=== PATIENT | female | born 1970 | race Caucasian/White ===

== ENCOUNTER 2022-07-12 15:35 | Emergency (ER) | payer MEDICARE, SELFPAY ==
[2022-07-12 15:46] VITALS: BP 150/98; PULSE 88; RESP 18; TEMP 36.2; O2SAT 95; BMI 30.9
--- NOTE | 2022-07-12 16:00 | ED_ITS ---
HPI - General Adult General Time Seen by Provider: 16:01 Date Seen: 07/12/22 Chief complaint: Back Injury/Pain Stated complaint: Lower back pain Time Seen by Provider: 07/12/22 16:00 Source: patient and RN notes reviewed Mode of arrival: ambulatory Limitations: no limitations History of Present Illness HPI narrative: Patient is a 52-year-old female coming in with right low back pain with onset today. She denies any trauma. She has no history of pain like this before. No other joints are bothering her. No fevers or chills, no night sweats. She is a smoker. Pain is not going down into either leg, not down into the buttocks. Walking does increase this. Rest helps, heat helps. She tried Aleve once, did not really change things. Again, symptoms just started today. Treatments prior to arrival: NSAID Related Data Previous Rx's Medication Instructions Recorded cyclobenzaprine 10 mg tablet 10 mg PO HS PRN muscle spasm #10 07/12/22 tabs Allergies Allergy/AdvReac Type Severity Reaction Status Date / Time No Known Drug Allergies Allergy Verified 07/12/22 15:48 Review of Systems Status of ROS: Reports: 6 or more systems reviewed and unremarkable except as noted in History and below PFSH PFSH Social History Smoking Status: Current every day smoker What tobacco products do you use: cigarettes Do you use any of these nicotine containing products: None Second hand tobacco smoke exposure: No How often do you have a drink containing alcohol: never AUDIT-C Alcohol total score: 0 Non-prescribed substance use: denies use Exam Const: Vital Signs, click to edit/add: Vital Signs - 24 hr 07/12/22 15:46 07/12/22 16:46 Temperature 97.1 F L Pulse Rate [Bilate ral Pulse Oximeter ] 88 72 Respiratory Rate 18 16 Blood Pressure [Ri ght Forearm] 150/98 H 142/88 H Pulse Oximetry 95 95 Oxygen Delivery Me thod Room Air Room Air Documenting provider has reviewed patient's vital signs: yes Common normals: no apparent distress, oriented x3, no limitations, alert and well nourished General appearance: cooperative, comfortable, well kempt and well developed Nutritional appearance: obese HENMT: Common normals: normocephalic and head/scalp atraumatic Head and scalp: normocephalic and atraumatic Eye: Common normals: PERRL, EOMs intact bilaterally, conjunctivae normal and no scleral icterus Conjunctiva: conjunctiva(e) normal Pupil: PERRL Neck & C-Spine: Common normals: full ROM, no lymphadenopathy, supple and no meningeal signs Resp: Common normals: normal respiratory effort, no retractions, no use of accessory muscles and clear to auscultation bilaterally Auscultation: clear to auscultation bilaterally Cardio: Common normals: regular rate, regular rhythm, S1 normal heart sound, S2 normal heart sound, no gallops, no clicks and no murmurs Rate: regular rate Rhythm: regular rhythm Heart sounds: S1 normal and S2 normal GI: Common normals: Normal to inspection, nondistended, normoactive bowel sounds present, soft to palpation and non-tender Palpation: soft Back & Pelvis: Common normals: thoracic and lumbar spine normal to inspection and no thoracic nor lumbar tenderness Other: Points to and has reported reproducible pain over the superior aspect of the right SI joint. There is no visible or palpable changes other than the pain. Can straight leg raise without any difficulty. Normal symmetrical strength of her lower extremities, normal sensation of her lower extremities. Gait is normal. No lower extremity edema. Certainly no midline tenderness of the lumbar spine. Really is pointing to the superior aspect of the right SI joint and when I palpate over this area that is where she states the pain is located. Neuro: Common normals: oriented x3 Sensorium/orientation: alert Meningeal signs: no meningeal signs Psych: Appearance: well kempt Course Course Hospital Course: We can x-ray her SI joints to see if there is any possible arthritis. This is nontraumatic. Have reviewed with her that given that it just started today, she really has not had adequate time for trial of conservative management. Once I have seen the x-rays and they been read by Radiology, will follow back up with her. At this time, do not see anything that would suggest that we need laboratory evaluation or any advanced imaging. Reevaluation(s) Reevaluation #1: Reviewed with patient that the x-ray is not showing any acute pathology. Sounds as if she is comfortable continuing with ongoing [id number] medicines. Given that this is only been present 1 day, do not feel that going to measures of prednisone are necessary. I think she needs to give this a few days to see if conservative management will be beneficial. Obviously if things are worsening, she understands I would recommend follow-up. I will outlined regimen of Tylenol and ibuprofen in her discharge. Did offer a bit of a muscle relaxant at bedtime, she would like to try this. I am not sure if it will help per but at least the sedating affects may give her some benefits with sleeping. Will have her continue with heat as it did seem to help her. Time: 18:03 Vital Signs Vital signs: Initial Vital Signs Temperature 97.1 F L 07/12/22 15:46 Temperature Source Temporal Artery Scan 07/12/22 15:46 Pulse Rate 88 07/12/22 15:46 Respiratory Rate 18 07/12/22 15:46 Blood Pressure 150/98 H 07/12/22 15:46 Blood Pressure Mean 115 07/12/22 15:46 Blood Pressure Position Sitting 07/12/22 15:46 Pulse Oximetry 95 07/12/22 15:46 Oxygen Delivery Method 07/12/22 15:46 Vital Signs Temperature 97.1 F L 07/12/22 15:46 Pulse Rate 88 07/12/22 15:46 Respiratory Rate 18 07/12/22 15:46 Blood Pressure 150/98 H 07/12/22 15:46 Pulse Oximetry 95 07/12/22 15:46 Oxygen Delivery Method 07/12/22 15:46 Temperature 97.1 F L 07/12/22 15:46 Pulse Rate 72 07/12/22 16:46 Respiratory Rate 16 07/12/22 16:46 Blood Pressure 142/88 H 07/12/22 16:46 Pulse Oximetry 95 07/12/22 16:46 Oxygen Delivery Method 07/12/22 16:46 Medical Decision Making Imaging Data SI joints x-ray: Attestation: I have reviewed the pertinent imaging results. My impression: I see no acute pathology on my preliminary review. Radiologist's impression: Patient: JUDE DAVIS Facility:?[facility] Patient ID:?[id number] Site Patient ID:?[id number]. Site :?1970 Study:?XRay Pelvis Bilateral SI Joints-07/12/2022 4:39:55 PM Ordering Physician:Sheila Young Final Report: Indication: Right sacroiliac joint pain Technique: Three views Comparison: Sacral series 02/24/2018 Findings: Bones: Alignment is normal. No fractures or bone lesions. Joint spaces: Unremarkable. Soft tissues: Surgical clip overlies the pelvis. Dictated by Iain Caban MD @ 07/12/2022 5:38:33 PM (Electronic Signature) Critical Care Time Critical Care Time Critical Care Time: No Discharge Plan Discharge Clinical Impression: Pain of right sacroiliac joint Patient Disposition: Home, Self-Care Condition: Stable Instructions: Back Pain (ED) Additional Instructions: Tylenol 1000 mg 3 times a day baseline for pain. Can add in ibuprofen 400 mg 3 to 4 times a day as needed for extra pain control, take with food. Can use the muscle relaxant Flexeril at bedtime to help with sleep. If you are not improving with these measures over the next 3-5 days, recommend follow up in clinic. If pain is becoming severe, have a fever with it or other concerning symptoms, return to the ER for further evaluation. Activity Level: Activity as Tolerated Prescriptions: New cyclobenzaprine 10 mg tablet 10 mg PO HS PRN (Reason: muscle spasm) Qty: 10 0RF Follow Up/Referrals: Provider,Not a Local [Referring] - Stand Alone Forms: [employer] Info Instructions
--- NOTE | 2022-07-12 16:10 | CRLHL7_ITS ---
For Patients: As a result of the Century Cures Act, medical imaging exams and procedure reports are released immediately into your electronic medical record. You may view this report before your referring provider. If you have questions, please contact your health care provider. Indication: Right sacroiliac joint pain Technique: Three views Comparison: Sacral series 02/24/2018 Findings: Bones: Alignment is normal. No fractures or bone lesions. Joint spaces: Unremarkable. Soft tissues: Surgical clip overlies the pelvis. Dictated by Iain Caban MD @ 07/12/2022 5:38:33 PM (Electronically Signed)
[2022-07-12 16:46] VITALS: BP 142/88; PULSE 72; RESP 16; O2SAT 95
[2022-07-12] MEDS: CYCLOBENZAPRINE HCL 10 MG TABLET PO (18:17)
== END 2022-07-12 18:19 | disposition home or self-care (01) ==
PROVIDERS: Emergency Provider Family Medicine; PCP Family Medicine
DX: M46.1 Sacroiliitis, not elsewhere classified (principal)
CPT/HCPCS: 72202; 99283; 99284; A9270

== ENCOUNTER 2022-09-05 06:06 | Day surgery (SDC) | payer MEDICARE, SELFPAY ==
[2022-09-05 06:41] VITALS: BMI 34.4
[2022-09-05 06:45] VITALS: BP 157/109; PULSE 85; RESP 16; TEMP 36.7; O2SAT 97
[2022-09-05] MEDS: BUPIVACAINE 0.5% 30 ML INJECTION (07:00)
[2022-09-05] MEDS: ETHYL CHLORIDE 1 APPLICATION 1 APPLIC TOPICAL (07:13)
--- NOTE | 2022-09-05 07:13 | SUR.PREOP ---
SAME DAY SURGERY LOCAL INJECTION SITE VERIFICATION WAS PERFORMED BY SURGEON/PA AND PATIENT PRIOR TO LOCAL ANESTHETIC BEING INJECTED TO OPERATIVE SITE.
[2022-09-05 07:19] VITALS: BP 141/92; PULSE 82; O2SAT 95
[2022-09-05 07:25] VITALS: BP 147/88; PULSE 83; RESP 16; O2SAT 96
[2022-09-05 07:30] VITALS: BP 140/78; PULSE 78; RESP 16; O2SAT 95
[2022-09-05] MEDS: NEOMYCIN/BACITRACIN/POLYMYXIN B 1 APPLIC TOPICAL (07:33)
[2022-09-05 07:35] VITALS: BP 143/82; PULSE 76; RESP 14; O2SAT 94
--- NOTE | 2022-09-05 07:38 | PM.ORPRC ---
Procedure Note Date of procedure: 09/05/22 Procedure: PREOPERATIVE DIAGNOSIS: 1. Right carpal tunnel syndrome POSTOPERATIVE DIAGNOSIS: 1. Right carpal tunnel syndrome PROCEDURE: 1. Right open carpal tunnel release SURGEON: Bucky Cordova MD. TALENT DEVELOPMENT SPECIALIST: ORQUIDEA Driscoll ANESTHESIA: Local anesthetic (50:50 mixture of 1% lidocaine with epi and 0.5% marcaine plain) - 10ml total IMPLANTS: None EBL: 2 mL TOURNIQUET: None COMPLICATIONS: None evident INDICATIONS: The patient is a pleasant 52-year-old female male who has experienced right hand numbess/tingling affecting the radial 3.5 digits for multiple months. It has progressively gotten worse. Nonoperative management has been tried and failed, and therefore surgery was recommended. DESCRIPTION OF PROCEDURE: Following a thorough discussion of risks, benefits, and alternatives consent was obtained and the operative extremity was marked. The patient was brought to the operating room and placed supine on the operating table. Local anesthesia induction was undertaken in preop holding. No antibiotics were administered as this was planned to be a local case only. Proper time-out was performed identifying proper patient, site, and procedure. The operative extremity was prepped and draped in the appropriate sterile fashion using ChloraPrep. An incision was made in line with the radial border of the ring finger beginning 1 cm distal to the distal wrist crease and progressing for another 2.5cm distal. Caution was taken to stay proximal to Patricia's cardinal line. Sharp incision through the skin, subcutaneous tissue, and palmar fascia was performed. The thenar musculature was bluntly elevated off the transverse carpal ligament. The ligament was directly visualized, and divided sharply with a 15 blade. This was released from its most proximal to the most distal extent. Metzenbaum scissor was also utilized to release the fascia extension proximally. We confirmed complete release of the transverse carpal ligament. Closure was performed with 4-O nylon in interrupted fashion. Soft dressings were applied, and the patient was transferred to the recovery room in stable condition. PLAN: 1. Encourage elevation of the operative extremity. 2. Range of motion of the fingers and hand/wrist as tolerated. 3. Ibuprofen/acetaminophen and/or Percocet as needed for pain control. 4. Follow up with PA visit or nurse visit in 12-16 days for wound check and suture removal.
== END 2022-09-05 07:54 | disposition home or self-care (01) ==
PROVIDERS: PCP Family Medicine; Visit Provider Orthopaedic Surgery Sports Medicine
PROC: (CPT 64721; principal; 2022-09-05 07:30)
DX: G56.01 Carpal tunnel syndrome, right upper limb (principal)
CPT/HCPCS: 64721; J3490

== ENCOUNTER 2022-12-05 06:29 | Outpatient (CLI) | payer MEDICARE, SELFPAY ==
--- NOTE | 2022-12-05 07:15 | MR_ITS ---
[address] [address] Phone:?[phone] Fax:?[phone] Referring Physician Information: Bucky Cordova M.D. [id number] [facility] [address] Phone:?[phone] Fax:?[phone] Patient:Kia Mcadams D.O.B:?1970 Sex:?Female Phone:?[phone] [facility] MRN:?[id number] Exam Date:?12/05/2022 EXAM: MRI of the RIGHT KNEE, without contrast CLINICAL: Right knee effusion. COMPARISONS: X-rays dated 11/26/2022. TECHNICAL: MR sequences of the right knee: sagittals: PD, PDFS coronals: PD, T2FS axials: PD, PDFS SEDATION: None. CONTRAST: None. FINDINGS: Ligaments: ACL: Intact and unremarkable. PCL: Intact and unremarkable. MCL: Intact and unremarkable. LCL: Intact and unremarkable. Posterolateral corner: Popliteus tendon, distal biceps femoris tendon, iliotibial band, and the popliteofibular ligament appear intact. Posteromedial corner: Semimembranosus, pes anserine tendons and posterior oblique ligament appear intact. Extensor mechanism: Patellar tendon: Intact, without tendinopathy. Quadriceps tendon: Intact, without tendinopathy. Retinacula: Medial and lateral retinacula are intact. Fat pads: Unremarkable infrapatellar Hoffa's, quadriceps and prefemoral fat pads. Patellofemoral joint: Patella: Grade 3-4 chondral loss involves the patellar median ridge extending into the medial patellar facet with underlying subchondral reactive marrow edema and small cystic change. Deep chondral delamination is also seen to involve the patellar median ridge extending into the junction with the lateral patellar facet on axial series 4 image 8. Mild chondral thinning and surface irregularity/fissuring involving the remainder of the lateral patellar facet cartilage. Trochlea: No significant chondromalacia. Medial compartment: Medial meniscus: Mild degenerative fraying involving the free edge of the posterior horn on sagittal series 6 image 21, only seen on a single image and therefore not completely meeting MRI criteria for tearing. Medial meniscus otherwise appears intact. Medial cartilage: High-grade and full-thickness chondral loss involves the weightbearing medial femoral condyle. Grade 2-3 chondral thinning involves the medial tibial plateau. Lateral compartment: Lateral meniscus: Mild ill-defined degenerative fraying/tearing involving the free edge and undersurface of the posterior horn on sagittal series 6 image 12 image 13, with ill-defined degenerative fraying/tearing involving the posterior root on sagittal series 6 image 14-15. No meniscal displacement. Lateral cartilage: Grade 3 chondral loss involves the central lateral tibial plateau on coronal series 8 images 18-19 and sagittal series 6 image 12. Mild chondral thinning involving the peripheral lateral femoral condyle. Knee joint: Effusion: Large partially visualized right knee effusion. Intra-articular bodies:?No convincing bodies identified. Popliteal cyst: None. Bones: No suspicious bone marrow signal alteration or fracture line. Anterior knee subcutaneous soft tissue edema is nonspecific, with mild posterior knee subcutaneous soft tissue edema also noted. IMPRESSION: 1. Ill-defined degenerative fraying/tearing involving the posterior horn and posterior root lateral meniscus. Mild degenerative fraying also involves the free edge of the posterior horn medial meniscus. 2. Tricompartmental chondral loss as above. 3. Large partially visualized joint effusion. 4. No evidence of ligamentous injury or fracture. [facility] Electronically signed on 12/05/2022 12:15:00 PM by Alli Sanders D.O.
== END 2022-12-05 06:30 | disposition home or self-care (01) ==
LOC: MRI 06:30
PROVIDERS: PCP Family Medicine; Visit Provider Orthopaedic Surgery Sports Medicine
DX: M25.561 Pain in right knee (principal); S83.281A Other tear of lateral meniscus, current injury, right knee, initial encounter; M25.461 Effusion, right knee
CPT/HCPCS: 73721

== ENCOUNTER 2024-09-14 06:10 | Day surgery (SDC) | payer MEDICARE, SELFPAY ==
[2024-09-14 06:10] VITALS: BP 176/91; PULSE 81; RESP 18; O2SAT 96; BMI 37.9
[2024-09-14] MEDS: BUPIVACAINE 0.5% 30 ML INJECTION (07:00)
[2024-09-14] MEDS: LIDOCAINE 1%-EPI 1:100,000 20 ML INFILTRATI (07:00)
--- NOTE | 2024-09-14 07:01 | SUR.PREOP ---
SAME DAY SURGERY LOCAL INJECTION SITE VERIFICATION WAS PERFORMED BY SURGEON/PA AND PATIENT PRIOR TO LOCAL ANESTHETIC BEING INJECTED TO OPERATIVE SITE.
[2024-09-14] MEDS: ETHYL CHLORIDE 1 APPLICATION 1 APPLIC TOPICAL (07:04)
[2024-09-14 07:15] VITALS: BP 180/95; PULSE 69; RESP 20; O2SAT 94
[2024-09-14 07:20] VITALS: BP 181/93; PULSE 74; RESP 18; O2SAT 94
[2024-09-14 07:25] VITALS: BP 170/100; PULSE 69; RESP 20; O2SAT 96
--- NOTE | 2024-09-14 07:32 | PM.ORPRC ---
Procedure Note Date of procedure: 09/14/24 Procedure: PREOPERATIVE DIAGNOSIS: 1. Left thumb flexor tenosynovitis - trigger thumb POSTOPERATIVE DIAGNOSIS: 1. Left thumb flexor tenosynovitis - trigger thumb PROCEDURE: 1. Left thumb flexor tendon sheath open release (A1 stacia) SURGEON: Bucky Cordova MD. CHIEF OF PARTY: Cara Moreira PA-C ANESTHESIA: Local anesthetic 4 mL via 50:50 mixture of 1% Lidocaine with epi and 0.5% marcaine plain EBL: 2ml IMPLANTS: None TOURNIQUET: None COMPLICATIONS: None evident INDICATIONS: The patient is a pleasant 54-year-old female who has experienced left thumb catching/triggering for number of months. It has progressively gotten worse. Given the failure of nonoperative management, and how this affects daily life, surgery was recommended. DESCRIPTION OF PROCEDURE: Following a thorough discussion of risks, benefits, and alternatives consent was obtained and the operative digit(s) was marked. The patient was brought to the operating room and placed supine on the operating table. Local anesthesia induction was undertaken in preop holding. No antibiotics were administered as this was planned to be a local case only. Proper time-out was performed identifying proper patient, site, and procedure. The operative extremity was prepped and draped in the appropriate sterile fashion using ChloraPrep. An incision was made on the palmar surface of the hand overlying the MCP joint region of the appropriate digit(s) respecting the palmar creases being cautious not to cross these perpendicularly. Sharp incision through the skin, and blunt dissection through subcutaneous tissue allowing protection of crossing neurologic structures. The A1 stacia was visualized directly. It was incised sharply with a 15 blade. It was released completely from its distal to proximal extent under direct visualization. The tendon was inspected and found to be mildly striated consistent with some friction. Otherwise, it was intact. The tendon was removed out of the wound, and further inspected. The patient was asked to manually flex and extend the digits and showed no further catching. The catching which was visualized after tourniquet inflation, was no longer evident with reproduction of a manual fist and relaxation. Closure was performed with 4-O nylon in interrupted fashion. Soft dressings were applied, and the patient was transferred to the recovery room in stable condition. PLAN: 1. Encourage elevation of the operative extremity. 2. Range of motion and icing of the fingers and hand/wrist as tolerated/needed. 3. Ibuprofen/acetaminophen as needed for pain control. 4. Follow up with PA visit in 12-16 days for wound check and suture removal.
[2024-09-14 07:40] VITALS: BP 171/116; PULSE 69; RESP 18; TEMP 36.9; O2SAT 95
== END 2024-09-14 07:44 | disposition home or self-care (01) ==
PROVIDERS: PCP Family Medicine; Visit Provider Orthopaedic Surgery Sports Medicine
PROC: (CPT 26055; principal; 2024-09-14 07:15)
DX: M65.312 Trigger thumb, left thumb (principal); M65.842 Other synovitis and tenosynovitis, left hand
CPT/HCPCS: 26055; J0665

== ENCOUNTER 2024-11-30 00:26 | Emergency (ER) | payer MEDICARE, SELFPAY ==
--- OUTSIDE RECORDS SUMMARY | 2024-11-30 00:29 | XMS_ITS | Clinical Summary ---
Author Organization [facility] Address [address] [place] [id number] Care Team Providers Care Motor Equipment Sergeant Name Role Phone Pcp, No Primary Care Provider Unavailabl e Medications PRILOSEC 20 MG CAP take 1 capsule (20 mg) by oral route once daily before a meal 30 ok thru 11 7 Active Immunizations Immunization Administration Dates Next Due Influenza, IIV3 (Age >=3 years) 05/03/2007 Social History Tobacco Use Types Packs/Day Years Used Date Smoking Tobacco: Never Assessed Comments Unknown Sex and Gender Information Value Date Recorded Sex Assigned at Not on file Legal Sex Female 5:19 AM [employer] Gender Identity Not on file Sexual Orientation Not on file Plan of Treatment Health Maintenance Due Date Last Done Comments Tdap 1979 Depression screening for age 12+ 1980 HIV for age 15-65 1983 BMI (ht and wt on same day) for age 18+ 1986 Hepatitis C screening for age 18-79 1986 Hepatitis B series for 19+ ( 1 of 3 - 19+ 3-dose series) 1987 Tetanus booster 1988 Pap test for age 21-65 03/21/2008 03/21/2005 Colonoscopy through age 75 2013 Lipids for age 45-75 2013 Mammogram for age 45-75 2013 Pneumococcal series for age 50+ (1 of 1 - PCV) 018 Zoster (shingles) series for age 50+ (1 of 2) 03/12/20 18 COVID-19 vaccine series ( - 2023-25 season) 4 Influenza Vaccine (Season Ended) 2025 05/03/20 07 Procedures Procedure Name Priority Date/Time Associated Diagnosis Comments GYNECOLOGICAL PANEL Timed 03/21/2005 1 2:00 PM CDT from Last 3 Months or Most Recently Relevant to Health Maintenance Results * GYNECOLOGICAL PANEL (03/21/2005 12:00 PM CDT) CYTOLOGY CYTOPATHOLOGY REPORT [facility] [address] [place] [address] Status: Final Report [id number] CLINICAL INFORMATION Reason for Visit : Routine LMP : 02-24-2005 Previous PAP Test : Yes Previous PAP Date : UNKNOWN Previous PAP Dx : Negative Previous Colposcopy/Bx: NONE Hormone Usage : NONE Additional Data : Not given HPV Request : Not requested SPECIMEN SOURCE : Cervical/vaginal thin, screening SPECIMEN ADEQUACY : Satisfactory for evaluation Endocervical component present. INTERPRETATION/RE SULT: Negative for intraepithelial lesion or malignancy. Cytology 1st Screener : sury Signed by: sury NOTE: The Pap test is a screening technique, not a diagnostic procedure. It is used primarily to screen for squamous cancers and precursor lesions. Published studies have shown that it is subject to both false negative and false positive results. The pap test should not be used as the sole means to diagnose or exclude pre-malignant and malignant lesions. COLLECTED: 03/21/05 ACCESSIONED: 03/22/05 SIGNED: 03/30/05 [facility] 03/21/2005 12:0 0 PM CDT 03/22/2005 3:59 PM CDT us Michael Vaca MD PATHOLOGY/CYTOLOGY Final R esult [facility] [place]NAL ZIP [id number] [address] from Last 3 Months or Most Recently Relevant to Health Maintenance Insurance MEDICARE [place] ONLY Care Teams Motor Equipment Sergeant Relationship Specialty Start Date End Date Pcp, No . PCP - General 01/01/14
[2024-11-30 00:39] VITALS: BP 151/87; PULSE 88; RESP 16; TEMP 36.7; O2SAT 98; BMI 36.7
--- NOTE | 2024-11-30 01:04 | ED.GENADULT ---
HPI - General Adult General Time Seen by Provider: 01:04 Date Seen: 11/30/24 Chief complaint: Extremity Pain/Injury, Lower Stated complaint: Left foot arch pain Time Seen by Provider: 11/30/24 01:00 Source: patient, RN notes reviewed and old records reviewed Mode of arrival: ambulatory Limitations: no limitations History of Present Illness HPI narrative: 54-year-old female who comes in today with left foot pain. This started a couple hours prior to coming emergency department. No known injury but notes that she was walking more than usual today. Pain is worse with walking and radiates from near the medial heel distally. Did not take any medication for this. Related Data Home Medications ?Medication ?Instructions ?Recorded ?Confirmed acetaminophen 500 mg tablet 500 mg PO Q6H PRN 11/06/22 09/22/24 (Tylenol Extra Strength) cetirizine 10 mg capsule (Allergy 10 mg PO QDAY PRN 09/08/24 09/22/24 Relief (cetirizine)) fluticasone propionate 50 2 intranasal DAILY 09/08/24 09/22/24 mcg/actuation nasal spray,suspension Allergies Allergy/AdvReac Type Severity Reaction Status Date / Time hydrocodone Allergy Nausea Verified 09/22/24 09:49 latex Allergy Rash Verified 09/22/24 09:49 cyclobenzaprine AdvReac Nose Bleed Verified 09/22/24 09:49 oxycodone AdvReac dizzy Verified 09/22/24 09:49 [facility] Medical History (Updated 11/30/24 @ 01:28 by Saran Nguyễn MD) Trigger finger (02/09/10) ?M65.30 - Trigger finger, unspecified finger (ICD-10) Tobacco use (02/09/10) ?Z72.0 - Tobacco use (ICD-10) Sprain of third toe of left foot ?S93.505A - Unspecified sprain of left lesser toe(s), initial encounter (ICD-10) Sprain of finger ?S63.619A - Unspecified sprain of unspecified finger, initial encounter (ICD-10) Seasonal allergic rhinitis ?J30.2 - Other seasonal allergic rhinitis (ICD-10) Right ankle pain ?M25.571 - Pain in right ankle and joints of right foot (ICD-10) Otitis media ?H66.90 - Otitis media, unspecified, unspecified ear (ICD-10) Obesity (02/09/10) ?E66.9 - Obesity, unspecified (ICD-10) Menorrhagia (02/09/10) ?N92.0 - Excessive and frequent menstruation with regular cycle (ICD-10) Hypertension (02/09/10) ?I10 - Essential (primary) hypertension (ICD-10) Hordeolum externum ?H00.019 - Hordeolum externum unspecified eye, unspecified eyelid (ICD-10) Dysfunction of eustachian tube ?H69.80 - Other specified disorders of Eustachian tube, unspecified ear (ICD-10) Dermatitis ?L30.9 - Dermatitis, unspecified (ICD-10) Contusion of left lower extremity ?S80.12XA - Contusion of left lower leg, initial encounter (ICD-10) Back pain ?M54.9 - Dorsalgia, unspecified (ICD-10) At risk for injury ?Z91.89 - Other specified personal risk factors, not elsewhere classified (ICD-10) Alopecia (02/09/10) ?L65.9 - Nonscarring hair loss, unspecified (ICD-10) Allergic rhinitis ?J30.9 - Allergic rhinitis, unspecified (ICD-10) Acquired absence of teeth ?K08.109 - Complete loss of teeth, unspecified cause, unspecified class (ICD-10) Surgical History (Updated 09/14/24 @ 15:24 by Shirley Randolph ~ PLAYER DEVELOPMENT MANAGER, PLAYER DEVELOPMENT MANAGER) S/P trigger finger release (09/14/24) ?Z98.890 - Other specified postprocedural states (ICD-10) History of dilation and curettage (02/09/10) ?Z98.890 - Other specified postprocedural states (ICD-10) History of hysterectomy (02/09/10) ?Z90.710 - Acquired absence of both cervix and uterus (ICD-10) History of carpal tunnel surgery of right wrist (09/05/22) ?Z98.890 - Other specified postprocedural states (ICD-10) S/P trigger finger release (09/12/10) ?Z98.890 - Other specified postprocedural states (ICD-10) S/P ORIF (open reduction internal fixation) fracture (07/18/12) ?Z98.890 - Other specified postprocedural states (ICD-10) ?Z87.81 - Personal history of (healed) traumatic fracture (ICD-10) S/P arthroscopy of right shoulder (06/11/14) ?Z98.890 - Other specified postprocedural states (ICD-10) S/P arthroscopy of left shoulder (05/10/16) ?Z98.890 - Other specified postprocedural states (ICD-10) History of ankle surgery (09/04/16) ?Z98.890 - Other specified postprocedural states (ICD-10) Social History Narrative: -Marcial Do you use any of these nicotine containing products: None Second hand tobacco smoke exposure: No How often do you have a drink containing alcohol: never How often do you have six or more drinks on one occasion: Never AUDIT-C Alcohol total score: 0 Non-prescribed substance use: denies use Exam Narrative: Exam Narrative: General: well nourished , NAD Head: Atraumatic and normocephalic ENT: External ears and external nose are normal Eyes: Conjunctiva clear, pupils are equal reactive, external ocular motions are intact Neck: Full spontaneous range of motion of the neck Lungs: No respiratory distress Musculoskeletal: Tenderness along the medial midfoot extending distally along with course of the great toe flexors. Pain with resisted toe flexion and inversion. Neurologic: No gross focal neurologic deficits Skin: No rashes Psych: Mood and affect are appropriate Const: Vital Signs, click to edit/add: Vital Signs - 24 hr 11/30/24 00:39 Temperature 98.0 F Pulse Rate [Pulse Oximeter] 88 Respiratory Rate 16 Blood Pressure [Ri ght Upper Arm] 151/87 H Pulse Oximetry 98 Oxygen Delivery Me thod Room Air Course Course ED Course: Reviewed prior emergency department note from 10/27/2022 which was for right knee swelling which was atraumatic, moderate effusion was found and this was treated conservatively. 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 Patient presents today with left foot pain, no known trauma but notes she was walking more than usual today. Pain is worse with walking, on exam she has tenderness along the course of the flexor digitorum longus starting at the proximal midfoot. Patient with placed in a walking boot, discussed symptom management and stable for discharge. Will follow-up with orthopedics this week. As there is no deformity, no swelling, no history of acute trauma, would defer x-rays at this point. Vital Signs Vital signs: Initial Vital Signs Temperature 98.0 F 11/30/24 00:39 Temperature Source Temporal Artery Scan 11/30/24 00:39 Pulse Rate 88 11/30/24 00:39 Respiratory Rate 16 11/30/24 00:39 Blood Pressure 151/87 H 11/30/24 00:39 Blood Pressure Mean 108 H 11/30/24 00:39 Blood Pressure Position Sitting 11/30/24 00:39 Pulse Oximetry 98 11/30/24 00:39 Oxygen Delivery Method Room Air 11/30/24 00:39 Vital Signs Temperature 98.0 F 11/30/24 00:39 Pulse Rate 88 11/30/24 00:39 Respiratory Rate 16 11/30/24 00:39 Blood Pressure 151/87 H 11/30/24 00:39 Pulse Oximetry 98 11/30/24 00:39 Oxygen Delivery Method Room Air 11/30/24 00:39 Temperature 98.0 F 11/30/24 00:39 Pulse Rate 88 11/30/24 00:39 Respiratory Rate 16 11/30/24 00:39 Blood Pressure 151/87 H 11/30/24 00:39 Pulse Oximetry 98 11/30/24 00:39 Oxygen Delivery Method Room Air 11/30/24 00:39 Discharge Plan Discharge Clinical Impression: Tendinitis of foot Patient Disposition: Home, Self-Care Instructions: Tendinitis (ED) Additional Instructions: Wear walking boot for comfort Take Tylenol and ibuprofen as needed for pain, you may take the Tylenol No. 3 that you have at home Call orthopedic clinic on Saturday to schedule a follow-up appointment Activity Level: Activity as Tolerated and Weight Bearing as Tolerated Discharge Diet: Regular Prescriptions: No Action Allergy Relief (cetirizine) 10 mg capsule 10 mg PO QDAY PRN fluticasone propionate 50 mcg/actuation spray,suspension 2 intranasal DAILY acetaminophen [Tylenol Extra Strength] 500 mg tablet 500 mg PO Q6H PRN Stand Alone Forms: MyHealth Info Instructions
== END 2024-11-30 01:40 | disposition home or self-care (01) ==
PROVIDERS: Emergency Provider Family Medicine
DX: M77.8 Other enthesopathies, not elsewhere classified (principal)
CPT/HCPCS: 99282; 99283